=== PATIENT | female | born 1950 | race Hispanic/Latino ===

== ENCOUNTER 2024-09-24 12:43 | Outpatient (CLI) | payer MEDICARE, MEDICAID | END 2024-09-24 12:44 | disposition home or self-care (01) | LOC: CSHULT 12:43 | PROVIDERS: ATTEND Family Medicine Addiction Medicine | DX: E11.65 Type 2 diabetes mellitus with hyperglycemia (principal); I35.0 Nonrheumatic aortic (valve) stenosis; R93.1 Abnormal findings on diagnostic imaging of heart and coronary circulation | CPT/HCPCS: 93306 ==